=== PATIENT | female | born 2005 | race Two or more races ===

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

== ENCOUNTER 2023-02-16 19:33 | Emergency (ER) | payer OTHER ==
[~2023-02-16] VITALS: Ht 157.5 cm; Wt 63.5 kg
[2023-02-17] MEDS ORDERED: ONDANSETRON ODT4 MG PO (02:04)
[2023-02-17] MEDS ORDERED: PEPCID40 MG PO (02:04)
[2023-02-17] MEDS ORDERED: INTESTINEX680 M1 PO (02:05)
== END 2023-02-17 02:15 ==
LOC: ER 19:33 → EMR PED 19:36
DX: R11.10 Vomiting, unspecified (principal); R19.7 Diarrhea, unspecified; E86.0 Dehydration; A05.9 Bacterial foodborne intoxication, unspecified